=== PATIENT | male | born 1970 | race Two or more races ===

== ENCOUNTER 2018-05-16 10:31 | Emergency (ER) | payer SELFPAY ==
[~2018-05-16] VITALS: Ht 170.2 cm; Wt 93.0 kg
[~2018-05-16 10:31] MED LIST: OMEPRAZOLE; PRAVASTATIN; ZOLP10TA6; [UNRECOGNIZED DRUG - CODE]
[2018-05-16 10:37] VITALS: BP 168/93
[2018-05-16] MEDS ORDERED: KETOROLAC TROMETH 60MG/2ML VIAL IM ONE (13:15)
== END 2018-05-16 13:53 | disposition home or self-care (01) ==
LOC: ER 10:31
DX: M51.16 Intervertebral disc disorders with radiculopathy, lumbar region (principal); I10 Essential (primary) hypertension
CPT/HCPCS: 72131; 96372; 99284; J1885

== ENCOUNTER 2021-03-30 09:36 | Emergency (ER) | payer BC ==
[~2021-03-30] VITALS: Ht 170.2 cm; Wt 90.7 kg
[2021-03-30 10:42] VITALS: BP 152/96
== END 2021-03-30 11:35 | disposition home or self-care (01) ==
LOC: ER 09:36
DX: S93.402A Sprain of unspecified ligament of left ankle, initial encounter (principal); I10 Essential (primary) hypertension; Z90.49 Acquired absence of other specified parts of digestive tract; W01.0XXA Fall on same level from slipping, tripping and stumbling without subsequent striking against object, initial encounter; Y93.89 Activity, other specified; Y92.89 Other specified places as the place of occurrence of the external cause; Y99.8 Other external cause status
CPT/HCPCS: 73600

== ENCOUNTER 2024-05-29 11:06 | Emergency (ER) | payer BC, OTHER ==
[~2024-05-29] VITALS: Ht 170.2 cm; Wt 104.6 kg
--- NOTE | 2024-05-29 11:49 | ED.PDOC ---
Musculoskeletal HPI Comments A 53 YEAR OLD MALE PRESENTS TO THE ED WITH COMPLAINT OF LEFT HIP PAIN. PATIENT STATES HE WAS AT WORK 6 DAYS AGO AND HE ACCIDENTALLY TWISTED HIS BODY THE WRONG WAY AND SUDDENLY FELT PAIN IN HIS LEFT HIP AND LEFT GROIN REGION. PATIENT REPORTS HE IS STILL EXPERIENCING THIS PAIN AT THIS TIME AND NOTES HIS PAIN IS WORSE WITH MOVEMENT. PATIENT DENIES FEVER, CHILLS, SHORTNESS OF BREATH, CHEST PAIN, ABDOMINAL PAIN, NAUSEA, VOMITING, HEADACHE, OR OTHER COMPLAINTS. NO OTHER SYMPTOMS OR MODIFYING FACTORS AT THIS TIME. PATIENT IS ALERT, ORIENTED X 4, AND HAS STEADY GAIT. Chief Complaint: Lower Extremity Time Seen by MD: 11:08 Primary Care Provider: sunny Lovelace Notes: Nurses Notes, Medications, Allergies Allergies: Coded Allergies: NO KNOWN ALLERGIES (Unverified , 08/28/12) Home Meds Active Scripts Baclofen (Baclofen) 10 Mg Tab, 10 MG PO BID, #20 TAB Prov:NEGIN PALMER 05/29/24 Ibuprofen (Ibuprofen) 800 Mg Tab, 1 TAB PO TID, #30 TAB Prov:NEGIN PALMER 05/29/24 Reported Medications Ciprofloxacin/Ciprofloxacin Hc (Ciprofloxacin Extended-Re) 500 Mg Tab, BID 08/28/12 [Omeprazole] 40 MG No Conflict Check 08/28/12 Zolpidem Tartrate (Zolpidem Tartrate) 10 Mg Tab 08/28/12 [Pravastatin] 40 MG No Conflict Check 08/28/12 Information Source: Patient Mode of Arrival: Ambulatory Location: Left Extremity Location: Groin, Hip Timing: Days Prehospital treatment: None Severity: Moderate Able to Move Extremity: Yes Bear Weight: Fully Pain: Moderate Mechanism: Twisting Circumstances: Work Related, Accident Onset of Symptoms: After Trauma Symptoms: Pain DVT Risk Factors: NONE Last Tetanus: Unknown Associated signs and symptoms: Hip pain Past Medical History PAST MEDICAL HISTORY: HTN, Denies Surgical History: Cholecystectomy Family History Family History: Reviewed,noncontributory to illness Social History Smoker: Non-Smoker Alcohol: Denies ETOH Use Drugs: Denies Drug Use Lives In: Home Constitutional: denies: chills, diaphoresis, fatigue, fever, malaise, sweats, weakness, others EENTM: denies: blurred vision, double vision, ear bleeding, ear discharge, ear drainage, ear pain, ear ringing, eye pain, eye redness, hearing loss, mouth pain, mouth swelling, nasal discharge, nose bleeding, nose congestion, nose pain, photophobia, tearing, throat pain, throat swelling, voice changes, others Respiratory: denies: cough, hemoptysis, orthopnea, SOB at rest, shortness of breath, SOB with excertion, stridor, wheezing, others Cardiovascular: denies: chest pain, dizzy spells, diaphoresis, Dyspnea on exertion, edema, irregular heart beat, left arm pain, lightheadedness, palpitations, PND, syncope, others Gastrointestinal: denies: abdomen distended, abdominal pain, blood streaked bowels, constipated, diarrhea, dysphagia, difficulty swallowing, hematemesis, melena, nausea, poor appetite, poor fluid intake, rectal bleeding, rectal pain, vomiting, others Genitourinary: denies: burning, dysuria, flank pain, frequency, hematuria, incontinence, penile discharge, penile sore, pain, testicle pain, testicle swelling, urgency, others Neurological: denies: dizziness, fainting, headache, left sided numbness, left sided weakness, numbness, paresthesia, pre-existing deficit, right sided numbn ess, right sided weakness, seizure, speech problems, tingling, tremors, weakness, others Musculoskeletal: reports: joint pain, muscle pain, others (LEFT HIP PAIN); denies: back pain, gout, joint swelling, muscle stiffness, neck pain Integumetry: denies: bruises, change in color, change in hair/nails, dryness, laceration, lesions, lumps, rash, wounds, others Allergic/Immunocompromised: denies: Difficulty Healing, Frequent Infections, Hives, Itching, others Hematologic/Lymphatic: denies: anemia, blood clots, easy bleeding, easy bruising, swollen glands, others Endocrine: denies: excessive hunger, excessive sweating, excessive thirst, excessive urination, flushing, intolerance to cold, intolerance to heat, unexplained weight gain, unexplained weight loss, others Psychiatric: denies: anxiety, bipolar disorder, depression, hopeless, panic disorder, schizophrenia, sleepless, suicidal, others All Other Systems: Reviewed and Negative Physical Exam General Appearance: No Apparent Distress, Normal HEENT: Normal ENT Inspection, PERRL/EOMI, Pharynx Normal, TMs Normal Neck: Full Range of Motion, Non-Tender, Normal, Normal Inspection Respiratory: Chest Non-Tender, Lungs Clear, No Accessory Muscle Use, No Respiratory Distress, Normal Breath Sounds Cardiovascular: No Edema, No JVD, No Murmur, No Gallop, Normal Peripheral Pulses, Regular Rate/Rhythm Breast Exam: Deferred Gastrointestinal: No Organomegaly, Non Tender, No Pulsatile Mass, Normal Bowel Sounds, Soft Genitalia: Deferred Pelvic: Deferred Rectal: Deferred Extremities: No calf tenderness, Normal capillary refill, Normal inspection, Normal range of motion, No pedal edema, Tender (AND MUSCLE SPASM ON LEFT ANTERIOR HIP, NO BONY TENDERNESS, SWELLING AND DEFORMITY, NO INGUINAL HERNIA SEEN. NORMAL ROM. ) Musculoskeletal : Apperance: Normal Neurologic: Alert, auto body mechanic II-XII nml as Tested, No Motor Deficits, Normal Affect, Normal Mood, No Sensory Deficits Cerebellar Function: Normal Reflexes: Normal Skin: Dry, Normal Color, Warm Peripheral Pulses: 2+ carotid (R), 2+ carotid (L) Lymphatic: No Adenopathy Was a procedure done? Was a procedure done?: No Differential Diagnosis EXT Differential Diagnosis: Fracture, Sprain, Dislocation, DJD, Contusion, Strain, Arthritis, Bursitis X-Ray, Labs, Meds, VS Vital Signs Date Time Temp Pulse Resp B/P (MAP) Pulse Ox O2 Delivery O2 Flow Rate FiO2 05/29/24 12:15 97.9 94 17 130/91 (104) 98 97.9 05/29/24 12:15 94 17 98 Room Air 05/29/24 11:16 97.9 94 17 130/91 (104) 98 Current Medications Medications (Trade) Dose Ordered Sig/[facility] Route Start Time Stop Time Status Last Admin Ketorolac Tromethamine (Toradol Injection) 60 mg ONCE ONCE IM 05/29/24 12:30 05/29/24 12:31 DC 05/29/24 12:27 CLINICAL INFORMATION: 53 years old, Male; twisting injury 6 days ago. Left hip and groin pain. TECHNIQUE: 3 views of the pelvis and left hip were obtained. COMPARISON: None FINDINGS: No acute fracture or dislocation. [id number]-[id number] joint space narrowing in both hips with mild subchondral sclerosis. Moderate arthritic changes of the pubic symphysis. Adjacent soft tissues are unremarkable. IMPRESSION: 1. No evidence of acute bony abnormality. 2. Arthritic changes as described above. 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 LABS ORDERED: NONE REVIEWED AND INTERPRETED RESULTS: NONE IMAGING ORDERED: XR HIP LT TREATMENTS ORDERED: TORADOL 60MG IM PROCEDURES PERFORMED: NONE CRITICAL CARE TIME: NONE I HAVE DISCUSSED THE PATIENT WITH THE ATTENDING PHYSICIAN DR. JOHNSON AND HE AGREES WITH THE PATIENT'S PLAN OF CARE AND DISPOSITION. BASED ON HISTORY OF PRESENT ILLNESS, AND PHYSICAL EXAM, PATIENT WILL BE DISCHARGED HOME. SHARED DECISION MAKING: PATIENT INSTRUCTED TO FOLLOW UP WITH PRIMARY CARE PROVIDER IN 1-2 DAYS FOR RE-EVALUATION OF SYMPTOMS. PATIENT VERBALIZES UNDERSTANDING TO RETURN TO ED FOR NEW OR WORSENING SYMPTOMS OR IF FOLLOW UP WITH PCP CANNOT BE OBTAINED. PATIENT FEELS COMFORTABLE GOING HOME AT THIS TIME. ALL QUESTIONS ADDRESSED AT TIME OF DISCHARGE. Images Reviewed?: Images reviewed and evaluated by me Time of 1ST Reevaluation: 12:37 Reevaluation 1ST: Improved Patient Education/Counseling: Diagnosis, Treatment, Need For Follow Up Family Education/Counseling: Diagnosis, Treatment, Need For Follow Up Medical Screening: No EMC Exist At This Time Departure 1 Departure Time of Disposition: 12:40 Impression: Primary Impression: Muscle strain of left hip Qualified Codes: S76.012A - Strain of muscle, fascia and tendon of left hip, initial encounter Additional Impression: Degenerative joint disease of left hip Qualified Codes: M16.12 - Unilateral primary osteoarthritis, left hip Disposition: HOME / SELF CARE / HOMELESS Condition: Stable Additional Instructions: FOLLOW-UP WITH PCP IN 1 TO 2 DAYS. TAKE MEDICATIONS PRESCRIBED. RETURN TO ED FOR ANY NEW OR WORSENING SYMPTOMS. e-Prescriptions Baclofen (Baclofen) 10 Mg Tab 10 MG PO BID, #20 TAB Prov: NEGIN PALMER 05/29/24 Ibuprofen (Ibuprofen) 800 Mg Tab 1 TAB PO TID, #30 TAB Prov: NEGIN PALMER 05/29/24 Discharged With: Self Critical Care Note Critical Care Time?: No Stability Stability form required: No I personally scribed for NEGIN PALMER ([email or web address]) on 05/29/24 at 11:49. Electronically submitted by Kai Tyler ([email or web address]). I personally scribed for NEGIN PALMER ([email or web address]) on 05/29/24 at 12:22. Electronically submitted by Kai Tyler ([email or web address]). NEGIN PALMER May 29, 2024 11:49
[2024-05-29 12:15] VITALS: BP 130/91; PULSE 94; RESP 17; TEMP 97.9; O2SAT 98
[2024-05-29] MEDS: KETOROLAC TROMETH 60MG/2ML VIAL IM ONE (12:27)
[2024-05-29] MEDS ORDERED: BACL10TA PO (12:34)
[2024-05-29] MEDS ORDERED: IBUP-1456 PO (12:34)
== END 2024-05-29 12:37 | disposition home or self-care (01) ==
LOC: ER 11:06
DX: S76.012A Strain of muscle, fascia and tendon of left hip, initial encounter (principal); M16.12 Unilateral primary osteoarthritis, left hip; I10 Essential (primary) hypertension; Z79.899 Other long term (current) drug therapy; Z90.49 Acquired absence of other specified parts of digestive tract; X50.1XXA Overexertion from prolonged static or awkward postures, initial encounter; Y93.89 Activity, other specified; Y92.89 Other specified places as the place of occurrence of the external cause; Y99.8 Other external cause status
CPT/HCPCS: 73502; 96372; 99283; J1885